=== PATIENT | female | born 1960 | race Caucasian/White ===

== ENCOUNTER 2019-02-04 00:06 | Emergency (ER) | payer OTHER, SELFPAY ==
[2019-02-04 00:08] VITALS: BP 178/93; PULSE 98; RESP 22; TEMP 36.7; O2SAT 98; BMI 32.3
[2019-02-04] MEDS: SODIUM CHLORIDE 0.9% 1,000 ML 1000 ML IV (01:01)
[2019-02-04] MEDS: GLUCAGON,HUMAN RECOMBINANT 1 MG/ML VIAL IV (01:01)
[2019-02-04] MEDS: PANTOPRAZOLE 40 MG VIAL IV (01:04)
[2019-02-04 01:08] LABS: Add Manual Diff / Slide Review NO; Basophils Absolute Auto 100 /uL (0-100); Basophils Percent Auto 0.4 % (0-2); Eosinophils Absolute Auto 100 /uL (0-450); Eosinophils Percent Auto 0.6 % (2-4); Hematocrit 39.3 % (36-46); Hemoglobin 12.9 g/dL (12.0-16.0); Lymphocytes Absolute Auto 2200 /uL (1100-4500); Lymphocytes Percent Auto 15.6 % (25-40); Mean Corpuscular Hemoglobin 27.9 PG (26-34); Mean Corpuscular Volume 84.7 fL (80-100); Monocytes Absolute Auto 700 /uL (0-900); Monocytes Percent Auto 5.1 % (3-14); Neutrophils Absolute Auto 11000 /uL (1500-7000); Neutrophils Percent Auto 78.3 % (50-75); Platelet Count 281 X10^3/uL (150-400); Red Blood Cell Count 4.64 X10^6/uL (4.0-5.2); Red Cell Distribution Width 14.3 % (11.6-14.8)
[2019-02-04 01:23] VITALS: BP 160/98; PULSE 96; RESP 14; O2SAT 96
[2019-02-04 01:26] LABS: Alanine Aminotransferase 29 IU/L (9-52); Albumin 4.8 g/dL (3.5-5.0); Albumin Globulin Ratio 1.5 (1.0-2.8); Alkaline Phosphatase 139 U/L (38-126); Aspartate Aminotransferase 22 IU/L (14-36); BUN Creatinine Ratio 16.7 (6-22); Bilirubin Total 0.3 mg/dL (0.2-1.3); Blood Urea Nitrogen 10 mg/dL (7-17); Calcium 9.3 mg/dL (8.4-10.2); Carbon Dioxide 24 mmol/L (22-32); Chloride 103 mmol/L (98-107); Estimated Glomerular Filt Rate > 60.0 mL/min (>60); Globulin 3.2 g/dL (1.7-4.1); Glucose 126 mg/dL (70-100); HEMOLYSIS < 15 (0-50); Lipase 50 U/L (23-300); Sodium 138 mmol/L (137-145)
--- NOTE | 2019-02-04 01:50 | DI.US.S_ITS ---
PROCEDURE: US ABDOMEN COMPLETE INDICATIONS: ruq pain TECHNIQUE: Real-time scanning was performed of the abdominal and retroperitoneal organs, with image documentation. COMPARISON: None. FINDINGS: Liver: Liver is normal in size and homogeneous in echotexture. Gallbladder: Gallbladder is contracted although grossly unremarkable without definite wall thickening. No sonographic Verma sign is seen. Biliary ducts: Intrahepatic bile ducts are non-dilated. Common bile duct caliber measures 7 mm, which is borderline dilated. There is a punctate echogenic focus seen in within the common bile duct described on the preliminary study interpretation as possible choledocholithiasis or debris. This is technically indeterminate although based on LFTs and level of clinical suspicion, MRCP could be performed for further assessment. Pancreas: Visualized portions of the pancreas are echogenic raising possibility of fatty infiltration. Spleen: Spleen is normal in size and homogeneous in echotexture. Kidneys: Kidneys are normal in size and echotexture. Right kidney measures 11.7 cm long; left kidney measures 10.8 cm long. No hydronephrosis or nephrolithiasis. No solid masses. Aorta: Visualized aorta is normal in caliber at less than 3 cm. Iliacs: Obscured by shadowing bowel gas IVC: Intrahepatic inferior vena cava is patent. Miscellaneous: No free abdominal fluid. IMPRESSION: Coarse echogenic liver suggesting diffuse hepatocellular disease/fatty infiltration. Please correlate with LFTs. Normal appearance of the gallbladder. Punctate echogenic focus seen within the distal common bile duct, technically nonspecific. Please see discussion above Dictated by: William Schmid M.D. on 02/04/2019 at 8:38 Approved by: William Schmid M.D. on 02/04/2019 at 8:43
[2019-02-04] MEDS: MAG HYDROX/ALUMINUM/SIMETH SUS 20 ML, LIDOCAINE VISCOUS 2% 15 ML PO (01:59)
[2019-02-04] MEDS: KETOROLAC 60 MG/2 ML VIAL 30 MG IV (01:59)
[2019-02-04 03:19] VITALS: BP 158/76; PULSE 100; RESP 20; O2SAT 98
[2019-02-04 04:45] VITALS: BP 141/83; PULSE 89; RESP 18; O2SAT 97
--- NOTE | 2019-02-04 06:06 | ED_ITS ---
HPI - Chest Pain General Chief Complaint: Chest Pain Stated Complaint: food stuck in throat since 5pm Time Seen by Provider: 02/04/19 00:14 Source: patient Mode of arrival: ambulatory Limitations: no limitations History of Present Illness HPI narrative: Patient is a 58-year-old female who presents with epigastric pa in. She says she is eating a Trisket cracker at 5:00 p.m. when she feels like it got stuck in her throat. She tried to drink a bunch of water to push it down it did not seem to help. She is not vomiting she feels like something is still really burning in her epigastric area up into her chest. She has no nausea no vomiting she has not tried eating but she is tolerating her own saliva and fluids. She has had this happen before. She does usually she is able to get it down just water. However she does have pretty bad acid reflux. MD complaint: chest pain and other (Epigastric pain) Duration: constant Pain location: substernal Related Data Previous Rx's Medication Instructions Recorded nystatin 1 chaitanya TOPICAL BID 10 Days #0 gm 06/18/16 Allergies Allergy/AdvReac Type Severity Reaction Status Date / Time latex [LATEX] Allergy Intermediate RASH Unverified 02/09/18 13:06 aspirin Allergy Unknown Unverified 02/09/18 13:06 pseudoephedrine Allergy Unknown Unverified 02/09/18 13:06 Review of Systems Review of Systems ROS Unobtainable: All systems reviewed & are unremarkable except as noted in HPI and below Constitutional Denies chills, Denies fever(s), Denies lethargy and Denies weakness Eyes Denies change in vision, Denies eye discharge, Denies irritation and Denies loss of vision Cardiovascular Reports chest pain, Denies dyspnea and Denies dyspnea on exertion Respiratory Denies cough, Denies dyspnea, Denies dyspnea on exertion and Denies wheezing Gastrointestinal Gastrointestinal: Reports abdominal pain (Epigastric pain) Genitourinary Denies hematuria, Denies flank pain, Denies urinary incontinence and Denies urinary urgency Musculoskeletal Denies back pain, Denies muscle weakness, Denies numbness and Denies tingling Integumentary/Breasts Denies pruritus, Denies erythema, Denies rash and Denies wounds Neurologic Denies loss of vision, Denies numbness, Denies tingling and Denies weakness Allergic/Immunologic Denies wheezing [facility] Medical History GERD (gastroesophageal reflux disease) (Acute) Surgical History Status post delivery Social History (Updated 02/04/19 @ 06:03 by Talai Bailey DO) Smoking Status: Never smoker alcohol intake: never substance use type: does not use Social History Smoking Status: Never smoker alcohol intake: never substance use type: does not use Exam Initial Vital Signs Initial Vital Signs: Vital Signs Temperature 98.1 F 02/04/19 00:08 Pulse Rate 98 H 02/04/19 00:08 Respiratory Rate 22 02/04/19 00:08 Blood Pressure 178/93 H 02/04/19 00:08 Pulse Oximetry 98 02/04/19 00:08 GENERAL: Alert appears in mild HEENT: Head atraumatic,EOMI, pupils reactive, face symmetric, moist mucous membranes CARDIOVASCULAR: Regular rate and rhythm without murmurs, rubs or gallops. RESPIRATORY: Breath sounds equal bilaterally, no wheezes rales or rhonchi. Managing own secretions no difficulty speaking ABDOMEN: Soft, tender epigastric area to variant minimal pressure no guarding no rebound very mild right upper quadrant pain, no lower abdominal pain EXTREMITIES: Normal range of motion, no clubbing or edema. Neurovascularly intact NEUROLOGICAL: Alert and oriented x4.Normal gait and speech. Cranial nerves II through XII grossly intact. SKIN: Warm, dry, no laceration, no petechiae, no rashes or lesions. Course Orders Ordered: ED Orders 02/04/19 EKG-12 Lead Routine 02/04/19 00:50 Complete Blood Count AUTO DIFF Stat Comprehensive Metabolic Panel Stat Lipase Stat 02/04/19 01:50 US abdomen complete Stat Discontinued Medications Al Hydrox/Mg Hydrox/Simethicone 20 ml/ Lidocaine HCl 15 ml 0 ml PO NOW ONE Stop: 02/04/19 01:52 Last Admin: 02/04/19 01:59 Dose: 35 ml Glucagon (Glucagen) 1 mg IV NOW ONE Stop: 02/04/19 00:41 Last Admin: 02/04/19 01:01 Dose: 1 mg Sodium Chloride (Normal Saline 0.9%) 1,000 mls @ 1,000 mls/hr IV CONT BETH Last Infusion: 02/04/19 02:23 Dose: 0 mls/hr Admin: 02/04/19 01:01 Dose: 1,000 mls/hr Ketorolac Tromethamine (Toradol) 30 mg IV NOW ONE Stop: 02/04/19 01:51 Last Admin: 02/04/19 01:59 Dose: 30 mg Pantoprazole Sodium (Protonix) 40 mg IV NOW ONE Stop: 02/04/19 00:41 Last Admin: 02/04/19 01:04 Dose: 40 mg Vital Signs - 8 hr 02/04/19 00:08 02/04/19 01:23 02/04/19 03:19 Temperature 98.1 F Pulse Rate 98 H 96 H 100 H Respiratory Rate 22 14 20 Blood Pressure 178/93 H Blood Pressure [Left Arm] 160/98 H 158/76 H Pulse Oximetry 98 96 98 02/04/19 04:45 Temperature Pulse Rate 89 Respiratory Rate 18 Blood Pressure 141/83 H Blood Pressure [Left Arm] Pulse Oximetry 97 MDM - Chest Pain Lab Data Attestation: I reviewed the patient's lab results. Result diagrams: 02/04/19 00:50 02/04/19 00:50 Lab Results 02/04/19 02/04/19 Range/Units 00:50 00:50 WBC 14.0 H (4.5-11.0) X10^3/uL RBC 4.64 (4.0-5.2) X10^6/uL Hgb 12.9 (12.0-16.0) g/dL Hct 39.3 (36-46) % MCV 84.7 (80-100) fL MCH 27.9 (26-34) PG MCHC 33.0 (30-36) % RDW 14.3 (11.6-14.8) % Plt Count 281 (150-400) X10^3/uL Neut % (Auto) 78.3 H (50-75) % Lymph % (Auto) 15.6 L (25-40) % [place] % (Auto) 5.1 (3-14) % Eos % (Auto) 0.6 L (2-4) % Baso % (Auto) 0.4 (0-2) % Neut # (Auto) 16577 H (0358-4494) /uL Lymph # (Auto) 2200 (2932-6087) /uL [place] # (Auto) 700 (0-900) /uL Eos # (Auto) 100 (0-450) /uL Baso # (Auto) 100 (0-100) /uL Sodium 138 (137-145) mmol/L Potassium 4.0 (3.4-5.1) mmol/L Chloride 103 (98-107) mmol/L Carbon Dioxide 24 (22-32) mmol/L BUN 10 (7-17) mg/dL Creatinine 0.60 (0.52-1.04) mg/dL Estimated GFR > 60.0 (>60) mL/min BUN/Creatinine Ratio 16.7 (6-22) Glucose 126 H (70-100) mg/dL Calcium 9.3 (8.4-10.2) mg/dL Total Bilirubin 0.3 (0.2-1.3) mg/dL AST 22 (14-36) IU/L ALT 29 (9-52) IU/L Alkaline Phosphatase 139 H (38-126) U/L Total Protein 8.0 (6.3-8.2) g/dL Albumin 4.8 (3.5-5.0) g/dL Globulin 3.2 (1.7-4.1) g/dL Albumin/Globulin Ratio 1.5 (1.0-2.8) Lipase 50 (23-300) U/L Urine Dip Bedside Urine Glucose Negative Bedside Urine Bilirubin - Negative Bedside Urine Ketone +/- 5 Urine Specific [place] 1.015 Bedside Urine Occult Blood +/- Bedside Urine pH 6.5 Bedside Urine Protein - Negative Bedside Urine Urobilinogen - Negative Bedside Urine Nitrite - Negative Bedside Urine Leukocytes - Negative Esterase Imaging Data US - abdomen: Radiologist's impression: shader and toner report: Diffuse fatty infiltration of the liver. Probable diffuse fatty infiltration of the pancreas. Mild common bile duct dilatation. Possible punctate choledocholithiasis or debris within common bile duct. ECG Data Attestation: I personally reviewed and interpreted this ECG as follows: Prior ECG tracings: available for review Interpretation: Normal sinus rhythm rate [address] changes no T-wave inversions similar to previous EKG MDM Narrative Medical decision making narrative: The patient's pain is much improved after Toradol. At this time I do not think any significant his common duct blockage she has normal bilirubin and normal liver enzymes. She overall is feeling much better. There does not seem to be food lodged in her esophagus she is managing secretions and fluid. Her pain is improved after Toradol and Protonix. I think GI cocktail even helped some as well. She overall is feeling much better. It is ready and able to go home Discharge Plan Departure Patient Disposition: Home Clinical Impression: Abdominal pain Qualifiers: Abdominal location: epigastric Qualified Code(s): R10.13 - Epigastric pain Discharge Date/Time: 02/04/19 04:45 Interventions: ED Discharge Assessment Last Done: 02/04/19 04:45 Instructions: Acute Abdominal Pain, Steakhouse Syndrome Activity Restrictions/Additional Instructions: *You have been diagnosed with epigastric pain *What to do: At this time is more likely that risk it scratched year softly guess. Ultrasound of gallbladder and blood work are reassuring. *Continue to take medications as directed Motrin 600 mg every 6-8 hours if needed for pain *Follow up with your primary care provider in 2-3 days *Return to ER if you should have inability to swallow increasing pain or any n ew, worsening or concerning symptoms Prescriptions: No Action nystatin 15 GM cream 1 chaitanya Topical BID 10 Days Qty: 0 RF: 0 Referrals: Derek Us MD [Primary Care Provider] -
== END 2019-02-04 04:45 | disposition home or self-care (01) ==
PROVIDERS: Emergency Provider Emergency Medicine; Family Provider Family Medicine; PCP Family Medicine
DX: R10.13 Epigastric pain (principal); R10.9 Unspecified abdominal pain
CPT/HCPCS: 36591; 76700; 80053; 81003; 83690; 85025; 93005; 96361; 96374; 96375; 99283; 99285; C9113; J1610; J1885

== ENCOUNTER → 2019-06-28 12:13 | Outpatient (CLI) | payer OTHER, SELFPAY ==
--- NOTE | 2019-06-28 | DI.US.S_ITS ---
PROCEDURE: US PELVIC COMPLETE INDICATIONS: PMB; BREAST CA; BRCA POSITIVE TECHNIQUE: Real-time scanning was performed of the pelvic organs, with image documentation. Additional endovaginal scanning was necessary due to incomplete visualization of the adnexal and endometrial structures by transabdominal scanning. COMPARISON: [facility], US, PELVIC COMPLETE, 03/31/2014, 22:13. FINDINGS: Transabdominal scanning: Limited scanning through the kidneys shows no hydronephrosis. No pathologic free abdominal or pelvic fluid. Endovaginal scanning: Uterus: Uterus is normal in size at 8.4 x 3.4 x 6.3 cm. The endometrium measures 5.5 mm in combined thickness. 1.6 x 1.0 x 1.3 cm intramural fibroid. There is a hypoechoic solid mass seen adjacent and contiguous with the anterior aspect of the endometrial complex measuring 1.2 x 0.8 x 1.5 cm. Ovaries: Simple cyst associated with the left ovary measuring 8mm; otherwise the ovaries are normal bilaterally. IMPRESSION: 1. Endometrial complex mildly thickened in this postmenopausal female with bleeding. Endometrial biopsy is recommended. 2. Hypoechoic solid focus adjacent to the anterior aspect of the endometrium which may represent a small submucosal fibroid. Recommend followup examination in 3 months to assess for interval change. 3. 1.6 cm left fundal intramural fibroid. Dictated by: Willi CHANG Interpreted: Mka Clancy MD on 06/28/2019 at 13:41 Approved by: Mak Clancy M.D. on 06/28/2019 at 16:34
[2019-11-26 14:17] VITALS: BP 134/69; PULSE 111; RESP 16; TEMP 37.1; O2SAT 98
== END ==
PROVIDERS: PCP Student in an Organized Health Care Education/Training Program; Visit Provider Student in an Organized Health Care Education/Training Program
DX: D25.1 Intramural leiomyoma of uterus (principal)
CPT/HCPCS: 76830; 76856

== ENCOUNTER → 2019-07-05 09:19 | Outpatient (CLI) | payer OTHER, SELFPAY ==
--- NOTE | 2019-07-05 09:56 | DI.CT.S_ITS ---
PROCEDURE: CT CHEST ABD PEL W CON INDICATIONS: breast cancer staging TECHNIQUE: After the administration of oral and intravenous contrast, 5 mm thick sections acquired from the lung apices to the symphysis. 5 mm coronal and sagittal reformats were performed, with additional 7 mm coronal MIP reformats through the lungs. For radiation dose reduction, the following was used: automated exposure control, adjustment of mA and/or kV according to patient size. COMPARISON: [facility], CT, ABDOMEN/PELVIS WITH CONTRAST, 03/13/2015, 15:24. [facility], US, US BIOPSY AXILLA, 06/14/2019, 13:37. FINDINGS: Image quality: Excellent. CHEST: Lungs and pleura: No acute airspace opacities. No pleural effusions or pneumothorax. Central and peripheral airways appear patent and normal in caliber. Mediastinum: Heart size is normal. No pericardial effusion. No mediastinal or hilar adenopathy by size criteria. Thoracic aorta and central pulmonary arteries are normal in size. Esophagus is normal in caliber. No hiatal hernia. Chest wall: No supraclavicular adenopathy by size criteria but there are 2 suspicious adjacent lymph nodes at the left axilla the largest of which is measuring up to 1.8 x 3.6 cm, similar in morphology and slightly larger in size than that identified during breast ultrasound and axillary ultrasound imaging, 06/14/19. The smaller of the 2 lesions is located deeper adjacent to the anterior border of the chest wall and measures only 1.4 cm in maximal dimension. Note is made of cutaneous thickening and breast surgical localization clips in area of prior biopsy on the left anteriorly, at the axial level of the nipple. Thyroid gland appears normal where well seen. ABDOMEN: Solid organs: Liver is normal in size and enhancement except for a 1.3 cm ovoid subcapsular nodule within the right hepatic lobe superiorly, best seen centered on series 2 image 50.. Gallbladder appears normal. Biliary system is non dilated. Pancreas enhances normally. Spleen is normal in size and enhancement. No adrenal nodules. Kidneys demonstrate normal size and enhancement, without hydronephrosis. Peritoneum and bowel: Bowel loops demonstrate normal wall thickness and caliber. No free fluid or air. Nodes and vessels: No retroperitoneal or mesenteric adenopathy by size criteria. Aorta and inferior vena cava are normal in size. Miscellaneous: No ventral hernias. PELVIS: Genitourinary: Bladder wall thickness is normal. Miscellaneous: No inguinal hernias or adenopathy. Mass lesion which measures up to Bones: No suspicious bony lesions. No vertebral body compression fractures. IMPRESSION: 1. Post biopsy and post radiation change left breast, centered on the retroareolar left breast parenchyma are several small apparent biopsy localization clips can be seen. 2. At the left axilla there is a lobulated1.8 x 3.6 cm enlarged lymph node, similar in appearance to the lesion in that area seen during breast axillary ultrasound procedure with biopsy 06/14/19. 3. There is a 1.3 cm oval hypodensity within the right hepatic lobe parenchyma which warrants additional followup attention on subsequent imaging. This could represent a single early metastatic lesion within the liver parenchyma. Depending on the clinical status either followup by scanning or by targeted hepatic MR scanning may be warranted. Dictated by: Chavez Alfonso M.D. on 07/05/2019 at 15:13 Approved by: Chavez Alfonso M.D. on 07/05/2019 at 15:22
== END ==
PROVIDERS: PCP Student in an Organized Health Care Education/Training Program
DX: C50.112 Malignant neoplasm of central portion of left female breast (principal); R59.0 Localized enlarged lymph nodes; K76.9 Liver disease, unspecified; Z17.0 Estrogen receptor positive status [ER+]; Z87.891 Personal history of nicotine dependence
CPT/HCPCS: 71260; 74177; Q9967

== ENCOUNTER → 2019-07-14 16:08 | Outpatient (CLI) | payer OTHER, SELFPAY ==
[2019-07-19 21:16] LABS: Estradiol 19 pg/mL
== END ==
PROVIDERS: PCP Student in an Organized Health Care Education/Training Program; Visit Provider Student in an Organized Health Care Education/Training Program
DX: N95.0 Postmenopausal bleeding (principal); Z85.3 Personal history of malignant neoplasm of breast
CPT/HCPCS: 36415; 82672; 83001

== ENCOUNTER → 2019-07-19 09:51 | Outpatient (CLI) | payer OTHER, SELFPAY ==
--- NOTE | 2019-07-19 09:53 | DI.NM.S_ITS ---
PROCEDURE: NM BONE SCAN WHOLE BODY RADIOPHARMACEUTICAL: 22.0 mCi Tc-99m MDP IV. INDICATIONS: breast cancer staging TECHNIQUE: Delayed whole-body scintigrams were obtained approximately 3-4 hours after intravenous injection of radiotracer. Anterior and posterior views were acquired from vertex to feet. Additional left and right oblique views of the thoracic cage were obtained. COMPARISON: [facility], CT, CT CHEST ABD PEL W CON, 07/05/2019, 10:21. FINDINGS: No lesions are identified in skull, sternum, clavicles, scapulae, ribs, bony pelvis, and visualized shafts of the long bones. There is low level increased uptake in cervical, thoracic and lumbar spine with distribution indistinguishable from degenerative disc and facet disease; early metastasis to spine could be obscured by degenerative changes. Uptake in spine is most prominent at T7 level. There are foci of increased periarticular activity involving shoulders, sternoclavicular joints, elbows, wrists, hands, hips, SI joints, knees, ankles and feet, compatible with degenerative/arthritic changes. IMPRESSION: 1. Increased uptake in the area of T7 is probably degenerative in nature. If there is mid thoracic pain or high clinical suspicion, MRI with and without contrast may be obtained for further evaluation. 2. Degenerative and arthritic changes as noted.. Dictated by: Rupal Hill M.D. on 07/19/2019 at 17:16 Approved by: Rupal Hill M.D. on 07/19/2019 at 18:52
== END ==
PROVIDERS: Family Provider Student in an Organized Health Care Education/Training Program; PCP Student in an Organized Health Care Education/Training Program
DX: C50.112 Malignant neoplasm of central portion of left female breast (principal); C77.3 Secondary and unspecified malignant neoplasm of axilla and upper limb lymph nodes; Z17.0 Estrogen receptor positive status [ER+]
CPT/HCPCS: 78306; A9503

== ENCOUNTER → 2019-07-25 09:15 | Outpatient (CLI) | payer OTHER, SELFPAY ==
--- NOTE | 2019-07-25 09:17 | DI.MRI.S_ITS ---
BREAST MRI OF BOTH BREASTS: 07/25/2019 CLINICAL: Invasive lobular carcinoma left breast. PROCEDURE: MR BREAST BI WO/W CON INDICATIONS: breast cancer TECHNIQUE: The patient was placed prone in a dedicated breast imaging coil. Precontrast axial STIR and 3D FLASH without fat saturation sequences were obtained. Both before and after bolus injection of contrast, sequential 1-minute axial 3D FLASH with fat saturation sequences for 3 time points, with subtraction images and maximum intensity projections (MIP's) generated. Delayed sagittal FLASH images with fat saturation were also obtained. Computer-aided detection, including computer algorithm analysis of MRI image data for lesion detection and characterization, pharmacokinetic analysis, with further physician review for interpretation, was performed. COMPARISON: [facility], US, US BREAST LIMITED RIGHT, 05/26/2019, 14:17. [facility], , MG DIAGNOSTIC BILATERAL, 05/26/2019, 13:54. FINDINGS: Image quality: Excellent. There is moderate background parenchymal enhancement. Right breast: Precontrast images demonstrate extensive T1 hyperintensity within the right breast ducts extending into the nipple. There is no corresponding enhancement on the postcontrast images. Multiple subcentimeter T2 hyperintense foci are present within the right breast parenchyma suggesting the presence of small breast cysts. There is a 0.7 x 1.0 x 0.6 cm enhancing mass within the right breast at 4:00 at an anterior depth. This corresponds with the hypoechoic mass visualized on the comparison ultrasound dated 05/26/19. This underwent ultrasound-guided biopsy on 06/14/19 and demonstrated an intraductal papilloma. No other suspicious mass lesions or enhancement within the right breast. Left breast: A focal central mass is present within the left breast which measures approximately 9.1 x 8.2 x 6.0 cm. Multiple spiculations extend from the central portion of this mass to the skin where there is sunita enhancement and thickening. Additionally, there is marked retraction of the left breast including inversion of the nipple. There is no enhancement of the left chest wall. This mass demonstrates a combination of rapid and medium initial enhancement and predominantly persistent type delayed phase kinetics. This lesion was previously biopsied. Miscellaneous: 2 avidly enhancing, enlarged lymph nodes are visualized within the left axilla. The largest measures 1.9 cm in short axis diameter and was previously biopsied. No right axillary adenopathy. No intramammary adenopathy. Limited visualization of the upper abdomen, mediastinum, and chest are unremarkable. The heart is mildly enlarged. IMPRESSION: KNOWN BIOPSY PROVEN MALIGNANCY 1. Enhancing mass within the right breast at 4:00 which corresponds with the previously biopsied papilloma. 2. No other suspicious enhancement within the right breast to suggest contralateral disease. 3. Extensive nonenhancing T1 hyperintensity throughout the right breast ducts suggesting benign, inspissated proteinaceous material. 4. Extensive tumor invasion of the left breast as described above which involves the skin and deformity of the breast. No findings to suggest invasion of the left chest wall. 5. Enlarged, avidly enhancing left axillary adenopathy previously biopsied and demonstrated to represent rhonda metastasis. This exam was interpreted at Station ID: [id number]. Electronically Signed By: Yasmin Valdez M.D. lk/:07/25/2019 17:23:14 ACR BI-RADS Category 6: Known biopsy proven malignancy [id number]
== END ==
PROVIDERS: PCP Student in an Organized Health Care Education/Training Program; Visit Provider Surgery
DX: C50.112 Malignant neoplasm of central portion of left female breast (principal); C77.3 Secondary and unspecified malignant neoplasm of axilla and upper limb lymph nodes; D24.1 Benign neoplasm of right breast
CPT/HCPCS: 77049; A9579

== ENCOUNTER → 2019-08-02 13:19 | Outpatient (CLI) | payer OTHER, SELFPAY ==
--- NOTE | 2019-08-02 13:20 | DI.ECHO.S_ITS ---
[facility]---------+ [facility] +---------+ : : [address] [place] : : : : [id number] : : : : Phone: [phone] Echocardiogram Report + + :Name: LEE SHEN I Study Date: 08/02/2019 Height: 65 in : :[facility] Exam Location: [facility] Weight: 246 lb : : Gender: Female BSA: 2.2 m2 : :: 1960 Age: 59 yrs BP: 128/90 mmHg: :Reason For Study: Breast Cancer/ Pre -Chemo : : Performed By: Aimee Page : :Referring: EVIN JUARES : + + Interpretation Summary Normal sinus rhythm. Normal LV size, wall thickness, wall motion and LV systolic function. EF is 60-65%. No valvular abnormalities. Mild LA enlargement; otherwise normal chamber sizes. No prior study available for comparison. Procedure: A two-dimensional transthoracic echocardiogram with color flow and Doppler was performed. The study quality was technically adequate. There is no prior echocardiogram noted for this patient. The patient was in normal sinus rhythm during the exam. Left Ventricle: The left ventricle is normal in size, wall thickness, and systolic function without any focal wall motion abnormalities. The ejection fraction is estimated to be 60-65%. Right Ventricle: The right ventricle is normal in size and function. Atria: The left atrium is mildly dilated. Right atrial size is normal. There is no Doppler evidence for an interatrial shunt. Mitral Valve: The mitral valve is normal in structure and function. There is mild mitral annular calcification. There is trace mitral regurgitation. Aortic Valve: The aortic valve is trileaflet. The aortic valve opens well. No aortic regurgitation is present. Tricuspid Valve: The tricuspid valve is normal in structure and function. There is a trace or physiologic amount of tricuspid regurgitation. Pulmonary artery pressures cannot be estimated because of the lack of a measurable TR jet velocity. Pulmonic Valve: The pulmonic valve is not well visualized. There is trace pulmonic regurgitation. Great Vessels: The aortic root is normal size. The ascending aorta is normal in size. The pulmonary artery is not well visualized, but is probably normal size. The IVC is of normal diameter and collapses greater than 50% with a sniff. This suggests a low right atrial pressure of 3 mm Hg. Pericardium/ Pleura There is no pericardial effusion. There is no pleural effusion. MMode/2D Measurements & Calculations LVIDd: 4.7 cm LVOT diam: 2.1 cm LVIDs: 3.4 cm Ao root diam: 3.2 cm FS: 28.0 % asc Aorta Diam: 2.8 cm EPSS: 0.40 cm IVSd: 0.80 cm LVPWd: 0.89 cm LV lara. diameter/BSA (cm/m^2): 2.2 LV sys. diameter/BSA (cm/m^2): 1.6 LA A2 area: 22.9 cm2 RA long axis: 4.0 cm LA A4 area: 23.2 cm2 RA area: 13.4 cm2 LA length (vol): 5.6 cm RA vol: 38.2 ml LA vol: 80.5 ml RA : 17.7 ml/m2 LA vol index: 37.3 ml/m2 IVC diam: 2.3 cm RVD1 (basal): 3.7 cm RVD2 (mid): 3.1 cm TAPSE: 2.3 cm Doppler Measurements & Calculations Ao V2 max: 166.8 cm/sec LVOT Max Caesar: 102.0 cm/sec Ao V2 mean: 109.6 cm/sec LV V1 max P.2 mmHg Ao max P.1 mmHg LV V1 VTI: 22.1 cm Ao mean P.5 mmHg CRIS(I,D): 2.3 cm2 Ao V2 VTI: 33.4 cm CRIS(V,D): 2.1 cm2 sev ratio: 0.66 CRIS indexed to BSA (cm^2/m^2): 1.0 MV E max caesar: 81.4 cm/sec PA V2 max: 74.7 cm/sec MV A max caesar: 106.7 cm/sec PA V2 mean: 56.3 cm/sec MV E/A: 0.76 PA mean P.4 mmHg Med Peak E' Caesar: 6.2 cm/sec PA Accel Time: 0.08 sec E/E' med: 13.1 Lat Peak E' Caesar: 8.3 cm/sec E/E' lat: 9.9 E/e' average: 11.5 MV dec time: 0.22 sec MV P1/2t: 64.4 msec MV P1/2t max caesar: 81.6 cm/sec SV(LVOT): 75.7 ml MVA(P1/2t): 3.4 cm2 Electronically signed by: Jacquie Shields M.D. on Reading Physician:08/02/2019 11:08 PM
== END ==
PROVIDERS: Family Provider Student in an Organized Health Care Education/Training Program; PCP Student in an Organized Health Care Education/Training Program
DX: Z01.818 Encounter for other preprocedural examination (principal); C50.112 Malignant neoplasm of central portion of left female breast; C77.3 Secondary and unspecified malignant neoplasm of axilla and upper limb lymph nodes; Z17.0 Estrogen receptor positive status [ER+]
CPT/HCPCS: 93306

== ENCOUNTER → 2019-10-10 12:52 | Outpatient (CLI) | payer OTHER, SELFPAY ==
--- NOTE | 2019-10-10 12:54 | DI.US.S_ITS ---
ULTRASOUND OF LEFT BREAST: 10/10/2019 CLINICAL: F/u known breast ca. Comparison is made to exams dated: 07/25/2019 breast [facility], 06/14/2019 ultrasound biopsy, 06/14/2019 ultrasound biopsy, 06/14/2019 mammogram, 05/26/2019 ultrasound, and 05/26/2019 mammogram - [facility]. Color flow ultrasound of the left breast was performed on the areas of interest. Mendiola scale images of the real-time examination were reviewed. There is a large shadowing mass within the left breast, the size of which cannot be characterized given the extent of disease and the extensive shadowing artifact. It is unclear whether this mass is decreased or increased in size when compared with the prior ultrasound dated 05/26/19 given the limitations of ultrasound. A communications representative axillary lymph node measures 0.9 cm in diameter. A previous, communications representative axillary lymph node measured 1.5 cm in diameter on the study dated 05/26/19. IMPRESSION: KNOWN BIOPSY PROVEN MALIGNANCY Large shadowing mass encompassing the left breast, the size of which cannot be accurately determined by ultrasound. If further characterization is warranted, MRI is recommended. Decrease size of a communications representative left axillary lymph node which may be associated with response to therapy.; However it is unclear whether the same lymph node is being characterized as on the prior study. Again, if clinically indicated, MRI could be used to further characterize findings. This exam was interpreted at Station ID: [id number]. Electronically Signed By: Yasmin Valdez M.D. lk/:10/10/2019 15:16:08 Ultrasound BI-RADS: 6 Known biopsy proven malignancy
== END ==
PROVIDERS: Family Provider Student in an Organized Health Care Education/Training Program; PCP Student in an Organized Health Care Education/Training Program
DX: C50.112 Malignant neoplasm of central portion of left female breast (principal); Z17.0 Estrogen receptor positive status [ER+]
CPT/HCPCS: 76642

== ENCOUNTER → 2019-10-11 12:18 | Outpatient (CLI) | payer OTHER, SELFPAY ==
--- NOTE | 2019-10-11 12:21 | DI.RAD.S_ITS ---
PROCEDURE: FL CATHETER PATENCY COMPARISON: None. INDICATIONS: Check port for possible leak FINDINGS: Port-A-Cath patency is documented, no contrast extravasation over the course of the study. IMPRESSION: Normal Port-A-Cath patency study. Dictated by: Chavez Alfonso M.D. on 10/11/2019 at 14:34 Approved by: Chavez Alfonso M.D. on 10/11/2019 at 14:34
== END ==
PROVIDERS: Family Provider Student in an Organized Health Care Education/Training Program; PCP Student in an Organized Health Care Education/Training Program
DX: Z45.2 Encounter for adjustment and management of vascular access device (principal); C50.919 Malignant neoplasm of unspecified site of unspecified female breast
CPT/HCPCS: 76000

== ENCOUNTER → 2019-12-07 07:35 | Outpatient (CLI) | payer OTHER, SELFPAY ==
--- NOTE | 2019-12-07 08:14 | DI.MRI.S_ITS ---
Patient Name: LEE SHEN date: 1960 Sex: F Attending Physician: Dwain Indications: Date: 12/07/2019 08:14 At the request of: CLEMENTINE NELSON Procedure: MR breast BI wo/w con BREAST MRI OF BOTH BREASTS: 12/07/2019 CLINICAL: Breast cancer after chemotherapy. PROCEDURE: MR BREAST BI WO/W CON INDICATIONS: Breast cancer after chemotherapy. Ultrasound-guided biopsy of the right breast mass at 4:00 position performed on 06/14/19 reportedly identified a high-risk benign intraductal papilloma. Ultrasound-guided biopsy of an enlarged left axillary tail lymph node on 06/14/19 reportedly identified malignancy metastatic axillary lymph nodes. Ultrasound-guided biopsy of a left breast mass (described as central to the nipple anterior depth on comparison ultrasound 05/26/19 and as 7:00 in the retroareolar region on ultrasound-guided biopsy of 06/14/19) reportedly identified malignancy is a lobular carcinoma. TECHNIQUE: The patient was placed prone in a dedicated breast imaging coil. Precontrast axial STIR and 3D FLASH without fat saturation sequences were obtained. Both before and after bolus injection of contrast, sequential 1-minute axial 3D FLASH with fat saturation sequences for 3 time points, with subtraction images and maximum intensity projections (MIP?s) generated. Delayed sagittal FLASH images with fat saturation were also obtained. 20 cc of ProHance intravenous contrast were utilized for this exam. Computer-aided detection, including computer algorithm analysis of MRI image data for lesion detection and characterization, pharmacokinetic analysis, with further physician review for interpretation, was performed. COMPARISON: [facility], MR, LOWER EXTREM. JNT WO CONTRAST, 04/02/2011, 18:32. [facility], MR, LOWER EXTREM. JNT WO CONTRAST, 04/02/2011, 17:59. [facility], US, US BREAST LT LIMITED, 10/10/2019, 14:25. [facility], MG, MG POST CLIP PLACEMENT LEFT, 06/14/2019, 15:07. [facility], MG, MG POST CLIP PLACEMENT RIGHT, 06/14/2019, 15:04. [facility], US, US BIOPSY BREAST 1ST LESION LEFT, 06/14/2019, 13:37. [facility], US, US BIOPSY AXILLA, 06/14/2019, 13:37. [facility], US, US BIOPSY BREAST 1ST LESION RIGHT, 06/14/2019, 13:37. [facility], US, US BREAST Continued Report - Page 2 of 3 Patient Name: LEE SHEN date: 1960 Sex: F Attending Physician: Dwain Indications: Date: 12/07/2019 08:14 At the request of: CLEMENTINE NELSON Procedure: MR breast BI wo/w con LIMITED LEFT, 05/26/2019, 14:17. [facility], US, US BREAST LIMITED RIGHT, 05/26/2019, 14:17. [facility], MG, MG DIAGNOSTIC BILATERAL, 05/26/2019, 13:54. FINDINGS: Image quality: There is susceptibility artifact and failure of fat saturation involving the medial right breast, which obscures underlying anatomy. There is moderate background parenchymal enhancement. Right breast: Precontrast images redemonstrate extensive T1 hyperintensity within the right breast ducts extending to the nipple, without corresponding enhancement on post contrast images, again consistent with inspissated proteinaceous material/debris. Small subcentimeter T2 hyperintense foci within the right breast are stable to comparison exam of 07/25/19, most consistent with intramammary cysts and lymph nodes. Previously identified 1.0 x 0.7 x 0.6 cm enhancing mass within the right breast at 4:00 position anterior depth remain stable in size to comparison breast MRI of 07/25/19; this mass again appears to correspond to the mass visualized on comparison ultrasound of 05/26/19 and underwent ultrasound-guided biopsy on 06/14/19 (demonstrating an intraductal papilloma). Left breast: Previously identified irregular spiculated central mass present within the left breast again measures approximately 9.1 x 8.2 x 6.0 cm with multiple spiculations extending to the skin. There is again marked retraction of the left breast with diffuse skin irregularity including left nipple inversion. Overall enhancement of this mass within the left breast is similar in extent to comparison MRI of 07/25/19, but the enhancement pattern appears more heterogeneous and decreased in confluence than on comparison MRI of 07/25/19. The mass demonstrates rapid initial enhancement and predominantly persistent contrast enhancement kinetics, similar to comparison exam of 07/25/19. Miscellaneous: Right axillary lymph nodes are stable to comparison MRI of 07/25/19. Previously identified identified enlarged level I left axillary lymph nodes are decreased in size from prior comparison exam. The more anteroinferior level I left axillary lymph node currently measures 2.5 x 1.2 x 2.0 cm, previously 3.9 x 1.9 x 4.0 cm on 07/25/19. The more posterosuperior level I left axillary lymph node currently measures 2.0 x 1.0 cm transaxial, previously 2.5 x 1.3 cm transaxial on 07/25/19. An enhancing left level III lymph node (Margarito's node) currently measures 0.9 x 0.7 cm transaxial, previously 1.1 x 1.0 cm transaxial on 07/25/19. No internal mammary lymphadenopathy noted bilaterally. Continued Report - Page 3 of 3 Patient Name: LEE SHEN date: 1960 Sex: F Attending Physician: Dwain Indications: Date: 12/07/2019 08:14 At the request of: CLEMENTINE NELSON Procedure: MR breast BI wo/w con IMPRESSION: KNOWN BIOPSY PROVEN MALIGNANCY Imaging artifact limits evaluation of the medial right breast. Within this context: 1. Similar size and extent of the large left breast biopsy-proven malignancy involving the skin and nipple. However, the pattern of contrast enhancement appears more heterogeneous and decreased in confluence than on comparison breast MRI of 07/25/19. This is indeterminate but could represent a partial response to treatment in the appropriate clinical setting. Clinical correlation recommended. 2. Interval decrease in size of level I and level III left axillary lymph nodes (with the level I lymphadenopathy previously biopsied and demonstrated to represent rhonda metastasis). 3. Stable size of the enhancing mass within the right breast at 4:00 position, reportedly corresponding to a previously biopsied papilloma. Continued attention on followup exams is suggested. BIRADS: 6. Biopsy-proven malignancy. COMMENT: The imaging literature indicates that a negative contrast breast MRI examination has a high sensitivity and a moderate specificity for detecting and excluding invasive carcinomas to a detection threshold of 3-5 mm; nonetheless, appropriate clinical and mammographic follow- up are recommended. MRI is not sensitive for detecting DCIS (ductal carcinoma in situ) and may not detect large invasive neoplasms that show only minimal enhancement such as mucinous carcinoma. If there are suspicious calcifications or clinically worrisome palpable masses, then biopsy should still be considered. Invasive neoplasms can be hidden by co-existent and benign enhancement caused by mastitis, hormone therapy effects, radiation therapy, , and recent biopsy or surgery. False positive examinations can occur in a number of circumstances, including breasts that have recently been subject to invasive procedures and those that contain atypical ductal hyperplasia, hormonally stimulated glandular tissue, fat necrosis, or radial scars. This exam was interpreted at Station ID: [id number]. Electronically Signed By: Kan Bergman M.D. ecl/:12/07/2019 11:58:08 copy to: MYRA Glover LEAH, ph: [phone] ACR BI-RADS Category 6: Known biopsy proven malignancy [id number]
== END ==
PROVIDERS: Family Provider Student in an Organized Health Care Education/Training Program; PCP Student in an Organized Health Care Education/Training Program; Referring Provider Internal Medicine Hematology & Oncology; Visit Provider Internal Medicine Hematology & Oncology
DX: C50.012 Malignant neoplasm of nipple and areola, left female breast (principal); C77.3 Secondary and unspecified malignant neoplasm of axilla and upper limb lymph nodes; D24.1 Benign neoplasm of right breast; Z17.0 Estrogen receptor positive status [ER+]
CPT/HCPCS: 77049; A9579

== ENCOUNTER → 2020-01-31 10:14 | Outpatient (CLI) | payer OTHER, SELFPAY ==
--- NOTE | 2020-01-31 11:25 | DI.CT.S_ITS ---
PROCEDURE: CT CHEST ABD PEL W CON INDICATIONS: breast cancer staging TECHNIQUE: After the administration of oral and intravenous contrast, 5 mm thick sections acquired from the lung apices to the symphysis. 5 mm coronal and sagittal reformats were performed, with additional 7 mm coronal MIP reformats through the lungs. For radiation dose reduction, the following was used: automated exposure control, adjustment of mA and/or kV according to patient size. COMPARISON: [facility], CT, ABDOMEN/PELVIS WITH CONTRAST, 03/13/2015, 15:24. [facility], NM, NM BONE SCAN WHOLE BODY, 07/19/2019, 13:21. [facility], CT, CT CHEST ABD PEL W CON, 07/05/2019, 10:21. FINDINGS: Image quality: Excellent. CHEST: Lungs and pleura: No acute airspace opacities. 2 mm calcified granuloma lateral periphery of the left lower lobe. 4 mm calcified granuloma noted in the posterior aspect of the right upper lobe. No pleural effusions or pneumothorax. Central and peripheral airways appear patent and normal in caliber. Mediastinum: Heart size is normal. No pericardial effusion. No mediastinal or hilar adenopathy by size criteria. Thoracic aorta and central pulmonary arteries are normal in size. Esophagus is normal in caliber. No hiatal hernia. Chest wall: Right chest wall Port-A-Cath is noted. No axillary or supraclavicular adenopathy by size criteria. There is a small 1.9 x 1.2 cm low-density lesion with irregular margins in the left axilla at the site of previously identified rhonda mass which likely represents postsurgical seroma/scarring. Thyroid gland is normal where visualized. Postsurgical changes compatible with bilateral mastectomies noted. Skin thickening and subcutaneous stranding noted at the mastectomy sites bilaterally likely represents post radiation change. There is a 2.0 x 6.0 cm fluid collection in the right mastectomy site likely represents postsurgical hematoma/seroma. ABDOMEN: Solid organs: Liver is normal in size. Small, approximately 11 cm in maximum diameter subcapsular, hypoattenuating nodule involving the posterior-superior subsegment of the right lobe liver is not significantly changed compared to 07/05/2019. Diffuse fatty infiltration of the liver. Gallbladder is normal. Biliary system is non dilated. Pancreas enhances normally. Spleen is normal in size and enhancement. Mild bilateral adrenal nodular thickening is stable compared to prior exams.. Kidneys demonstrate normal size and enhancement, without hydronephrosis. Peritoneum and bowel: Bowel loops demonstrate normal wall thickness and caliber. No free air. Small amount of scattered fluid is noted in the pelvis. Peritoneal membrane thickening involving the lower and central pelvis has progressed compared to 07/05/19. Patchy, ill-defined soft tissue densities in the omentum are stable compared to 07/05/2019. Nodes and vessels: No retroperitoneal or mesenteric adenopathy by size criteria. Aorta and inferior vena cava are normal in size. Miscellaneous: No ventral hernias. PELVIS: Genitourinary: Bladder wall thickness is normal. Miscellaneous: No inguinal hernias or adenopathy. Bones: No suspicious bony lesions. No vertebral body compression fractures. Spine degenerative disc disease and facet arthropathy. IMPRESSION: 1. Status post bilateral mastectomies and left axillary rhonda mass resection. 2. No lymphadenopathy based on size criteria. 3. Peritoneal membrane thickening involving the central pelvis has progressed in the interval since prior exam obtained 07/05/2019 compatible with progression of peritoneal carcinomatosis. 3. Subcapsular, hypoattenuating lesion involving the posterior-superior subsegment of the right lobe of liver is stable compared to 07/05/2019. Dictated by: Olivia Biggs MD, PhD on 01/31/2020 at 11:37 Approved by: Olivia Biggs MD, PhD on 01/31/2020 at 11:57
== END ==
PROVIDERS: Family Provider Student in an Organized Health Care Education/Training Program; PCP Student in an Organized Health Care Education/Training Program; Referring Provider Internal Medicine Hematology & Oncology; Visit Provider Internal Medicine Hematology & Oncology
DX: C50.012 Malignant neoplasm of nipple and areola, left female breast (principal); C77.3 Secondary and unspecified malignant neoplasm of axilla and upper limb lymph nodes; K76.9 Liver disease, unspecified; Z17.0 Estrogen receptor positive status [ER+]; Z90.13 Acquired absence of bilateral breasts and nipples
CPT/HCPCS: 71260; 74177; Q9967

== ENCOUNTER → 2020-03-15 08:52 | Outpatient (CLI) | payer OTHER, SELFPAY ==
--- NOTE | 2020-03-15 09:56 | DI.CT.S_ITS ---
PROCEDURE: CT ABDOMEN PELVIS W CON INDICATIONS: abdomen bloating, breast cancer TECHNIQUE: After the administration of oral and intravenous contrast, 5 mm thick sections acquired from the diaphragms to the symphysis. 5 mm thick coronal and sagittal reformats were performed. For radiation dose reduction, the following was used: automated exposure control, adjustment of mA and/or kV according to patient size. COMPARISON: [facility], CT, CT CHEST ABD PEL W CON, 01/31/2020, 11:12. [facility], CT, ABDOMEN/PELVIS WITH CONTRAST, 03/13/2015, 15:24. FINDINGS: Image quality: Excellent. ABDOMEN: Lung bases: Lung bases are clear. Heart size is normal. Solid organs: Liver is normal in size and enhancement. Gallbladder appears normal. Biliary system is non-dilated. Pancreas enhances normally. Spleen is normal in size and enhancement. No adrenal nodules. Kidneys are normal in size and enhancement, without hydronephrosis but the right renal pelvis and right ureter is slightly more prominent than that on the left. Peritoneum and bowel: Stomach, small bowel, and colon loops are normal in caliber and wall thickness. No free fluid or air. Note is again made of slight thickening and increased radiodensity within the omentum, most convincingly demonstrated in the area at the midline just above the level of the umbilicus. Additionally, there is slight stranding along the omental margin to the left of midline more inferiorly. Nodes and vessels: No retroperitoneal or mesenteric adenopathy. Aorta and inferior vena cava are normal in caliber. Miscellaneous: No ventral hernias. PELVIS: Genitourinary: Bladder wall thickness is normal. Miscellaneous: No inguinal hernias or adenopathy. The pattern of peritoneal enhancement and thickening has been previous identified deep within the pelvis, right greater than left, and this pattern remains. No definite interval worsening is seen. A slight amount of free fluid is seen deep within the cul-de-sac. Bones: No suspicious bony lesions. No vertebral body compression fractures. IMPRESSION: 1. No appreciable change in the pattern of omental carcinomatosis and also peritoneal carcinomatosis deep within the pelvis greater on the right than the left. 2. Slight asymmetric prominence of the right renal collecting system and ureter when compared to the appearance on the left. This asymmetry could indicate potential for impingement on the normal outflow of urine through the distal right ureter given the asymmetric degree of peritoneal enhancement and thickening at the right pelvis. Continued attention to the caliber of the collecting system and ureter on the right is recommended. No asymmetric renal cortical enhancement has developed at this time. Dictated by: Chavez Alfonso M.D. on 03/15/2020 at 13:37 Approved by: Chavez Alfonso M.D. on 03/15/2020 at 14:07
== END ==
PROVIDERS: Family Provider Student in an Organized Health Care Education/Training Program; PCP Student in an Organized Health Care Education/Training Program; Referring Provider Internal Medicine Hematology & Oncology; Visit Provider Internal Medicine Hematology & Oncology
DX: C50.112 Malignant neoplasm of central portion of left female breast (principal); C78.6 Secondary malignant neoplasm of retroperitoneum and peritoneum; R14.0 Abdominal distension (gaseous)
CPT/HCPCS: 74177; Q9967

== ENCOUNTER → 2020-04-13 09:46 | Outpatient (CLI) | payer OTHER, SELFPAY ==
[2020-04-14 02:05] LABS: COVID19 Sendout Not Detected (Not Detect)
== END ==
PROVIDERS: Family Provider Student in an Organized Health Care Education/Training Program; PCP Student in an Organized Health Care Education/Training Program; Visit Provider Physician Assistant
DX: Z01.818 Encounter for other preprocedural examination (principal)
CPT/HCPCS: 87635

== ENCOUNTER 2020-04-16 09:04 | Day surgery (SDC) | payer OTHER, SELFPAY ==
[2020-04-10 08:15] VITALS: BMI 40.7
[2020-04-16] VITALS (7 sets, daily range): BP systolic 138–156; BP diastolic 71–91; PULSE 69–93; RESP 10–20; TEMP 36.1–36.3; O2SAT 93–98; BMI 39.8
--- NOTE | 2020-04-16 | PATH_ITS ---
[facility] Accession Number: [id number] . 01 Material submitted: . peritoneum - PERITONEAL BIOPSIES . 02 Diagnosis: Peritoneum, Biopsies: Metastatic breast carcinoma, confirmed by immunohistochemistry. Please see comment. [facility] 04/19/2020 1401 Local . 02 Comment: The morphologic appearance is compatible with metastasis from the patient's previously diagnosed lobular breast carcinoma. As part of routine air quality technician, Dr. Garcia also reviewed this case and agrees with the diagnosis. . 02 Electronically signed: . Kady Portillo MD, Pathologist NPI- [id number] . 01 Gross description: . Specimen A is received in formalin, labeled with patient identification and peritoneal biopsies. It consists of three white to yellow-angelo and irregular shaped tissue fragments measuring from 1.3 x 0.6 x 0.3 cm to 1.4 x 1.1 x 0.2 cm. The entire specimen is submitted in one cassette. Summary of sections: A1 -three pieces. ([id number]) /[facility] 04/17/2020 1434 Local . 02 Microscopic: . Immunohistochemical stains were performed to characterize cells of interest. All control stains showed appropriate reactivity. . RESULTS: GATA3: Uniformly positive. Estrogen receptor: Positive (moderate, 90% of cells). GCDFP15: Variably positive. Mammaglobin: Occasional cells positive. . INTERPRETATION: The immunophenotype is compatible with metastatic breast carcinoma. . * This test was developed and its performance characteristics determined by [employer]. It has not been cleared or approved by the U.S. Food and Drug Administration. The FDA has determined that such clearance or approval is not necessary. This test is used for clinical purposes. It should not be regarded as investigational or for research. . 02 Pathologist provided ICD-10: C78.6 . 02 CPT . 879992, L34005, C28712 Performed at: 01 [facility] [address] [place] [address], [place], [place] [id number] MD Nirmal Pollock MD Phone: [phone] Performed at: 02 [facility] [address] [place], [place] [id number] MD Kady Portillo MD Phone: [phone]
[2020-04-16] MEDS: LACTATED RINGERS 1,000 ML 42 ML IV (09:15)
--- NOTE | 2020-04-16 09:27 | PM.HP.1 ---
History of Present Illness History of Present Illness Date Patient Seen: 04/16/20 Time Patient Seen: 09:29 Chief complaint: [id number] Narrative: 60-year-old woman with history of left breast cancer who has undergone a mastectomy with axillary lymph node dissection as well as chemo and radiation. She has developed recent right-sided abdominal pain and has imaging which demonstrates some peritoneal thickening question is whether this is peritoneal metastasis versus a benign process. Please see the H&P from March 2020 for further detail. She has had no interval changes in her health. Patient History Medical History Former smoker (Acute) GERD (gastroesophageal reflux disease) (Acute) Surgical History Hx of bilateral mastectomy (Acute 01/05/20) Hx of left breast biopsy (Acute 06/14/19) Status post delivery Family & Social History Tobacco & Substance use: Smoking Status Former smoker alcohol intake never Meds Home Medications and Allergies Home Medications Medication Instructions Recorded Confirmed Type [id number]-met-choln 1 ml PO DAILY 06/28/19 04/16/20 History [Geritol Tonic with Ferrex 18] diphenhydramine HCl 25 mg capsule 25 mg PO Q6H PRN 07/14/19 04/16/20 History hydrocodone-acetaminophen 1 tab PO Q4-6H PRN 08/16/19 04/16/20 History ondansetron 4 mg PO Q8H PRN #20 tab 09/13/19 04/10/20 Rx gabapentin 100 mg PO BID #60 cap 02/26/20 04/16/20 Rx Allergies Allergy/AdvReac Type Severity Reaction Status Date / Time aspirin Allergy Intermediate Verified 03/20/20 09:11 latex [LATEX] Allergy Intermediate RASH Verified 03/20/20 09:11 iodine Allergy Mild Rash Verified 04/16/20 09:20 acetaminophen [From Percocet] AdvReac Mild Hallucinations, Verified 04/16/20 09:20 Onry oxycodone [From Percocet] AdvReac Mild Hallucinations, Verified 04/16/20 09:20 Onry pseudoephedrine AdvReac Mild Nervousness, Unverified 04/16/20 09:20 jittery Review of Systems Review of Systems Narrative: A 10 point review of systems is negative except as noted in the HPI Exam Vital Signs (past 8 hours): General-no acute distress, well nourished HEENT-moist mucous membranes, no scleral icterus Neck-supple, no lymphadenopathy Chest- non labored respirations, clear to auscultation bilaterally Cardiac-regular rate no peripheral edema Abdomen-soft, nontender, non distended Extremities-warm, well perfused Neurological-alert and oriented, no focal deficits Assessment & Plan Assessment & Plan narrative: 60-year-old female with history of left breast cancer pT4a pN1a, status post neoadjuvant therapy, bilateral mastectomy with left axillary lymph node dissection now on adjuvant radiation. She has recently developed right abdominal pain and has imaging which demonstrates peritoneal thickening concerning for possible peritoneal carcinomatosis although this would be unusual secondary to breast cancer. She is here for diagnostic laparoscopy with biopsy to evaluate the peritoneal radiographic findings and determine whether this is malignancy versus a benign process. COVID-19 COVID-19 status: Negative Result date/Date tested (Pos, Neg/Pending): 04/13/20
[2020-04-16] MEDS: CEFAZOLIN 2 GM/100 ML FROZ.PIGGY IV (09:50)
--- NOTE | 2020-04-16 10:12 | SUR.OPER ---
pt presents with esparza over her left breast, axilla and chest that she said are from her radiation treatment. She also has a red blister like welt on her left eyelid
--- NOTE | 2020-04-16 10:14 | SUR.OPER ---
Supine on padded OR bed, head on pillow, arms secured on padded arm boards at <90 degrees abduction, legs uncrossed, safety belt at thigh, tape over blanket over lower legs.
[2020-04-16] MEDS: BUPIVACAINE 0.25% (PF) VIAL 30 ML INJ (10:20)
--- NOTE | 2020-04-16 10:58 | P.OP_ITS ---
Operative Date/Time/Diagnoses Date of procedure: 04/16/20 Time of procedure: 10:58 Pre-op diagnosis: Carcinomatosis Post-op diagnosis: same Procedure & Clinicians Procedure: Diagnostic laparoscopy Same procedure as scheduled: Yes Indications: 60-year-old woman history of left breast cancer who is undergone surgery chemo and radiation therapy in developed right-sided abdominal pain with CT demonstrating peritoneal thickening. Surgeon: George Todd Anesthesia Type: General Operative Notes Findings: Likely diffuse carcinomatosis Specimen(s): other (Peritoneal biopsies) Estimated Blood Loss (mL): 10 Procedure in detail: Patient was brought to the operating room and placed on the table. She received 2 g of Ancef prior to skin incision. She received bilateral lower extremity compression devices. General anesthesia was induced and she was intubated with an endotracheal tube. Time-out was performed. She was prepped and draped in sterile fashion. Made a infraumbilical incision the umbilical stalk was elevated and the which fascia was sharply incised. The abdomen was entered atraumatically with a 12 mm balloon trocar. Pneumoperitoneum was established. Inspection demonstrated no evidence of injury upon entry. There was approximately 100 mL of serosanguineous fluid within the abdomen consistent with ascites which was suctioned out.. Inspection of the abdomen demonstrated that there were diffuse white nodular plaques throughout the abdomen especially on the abdominal wall, the right pelvic sidewall and circumferential around the cecum. There were no obvious masses. I performed a biopsy of the peritoneum in several places. The peritoneum with the plaques were grasped and sharply incised with the scissors. Hemostasis was observed. The abdomen was desufflated. The umbilicus was closed with Vicryl suture under direct visualization in [id number] fashion. The skin was closed with Monoc ryl for O followed by the application of Dermabond. Patient tolerated procedure well. Complications: none Post-operative Condition: stable Disposition: same day surgery
[2020-04-16] MEDS: HYDROCODONE/ACET 5/325 TABLET 1 TAB PO (11:44)
== END 2020-04-16 12:25 | disposition home or self-care (01) ==
PROVIDERS: PCP Student in an Organized Health Care Education/Training Program; Referring Provider Surgery; Visit Provider Surgery
PROC: (CPT 49320; principal; 2020-04-16 10:15)
DX: C78.6 Secondary malignant neoplasm of retroperitoneum and peritoneum (principal); K21.9 Gastro-esophageal reflux disease without esophagitis; R93.5 Abnormal findings on diagnostic imaging of other abdominal regions, including retroperitoneum; Z85.3 Personal history of malignant neoplasm of breast; Z87.891 Personal history of nicotine dependence
CPT/HCPCS: 49321; J0330; J0690; J1100; J1170; J2405; J2704; J3010

== ENCOUNTER → 2020-05-09 10:35 | Outpatient (CLI) | payer OTHER, SELFPAY ==
--- NOTE | 2020-05-09 10:36 | DI.NM.S_ITS ---
PROCEDURE: [place] BONE SCAN WHOLE BODY RADIOPHARMACEUTICAL: 20.5 mCi Tc-99m MDP IV. INDICATIONS: metastatic breast cancer TECHNIQUE: Delayed whole-body scintigrams were obtained approximately 3-4 hours after intravenous injection of radiotracer. Anterior and posterior views were acquired from vertex to feet. Additional left and right oblique views of the chest/abdomen were obtained. COMPARISON: [facility], CT, CT CHEST ABD PEL W CON, 05/09/2020, 11:55. [facility], [place], [place] BONE SCAN WHOLE BODY, 07/19/2019, 13:21. FINDINGS: As was previously the case there is a mild degree of isotope uptake centered on the T8-T9 area of the mid thoracic spine. With reference to the sagittal spine imaging from CT scanning earlier today that represents the area of maximal degenerative disc disease, and there is no osteolytic or blastic lesion in that area of any type. Therefore this is considered degenerative rather than metastatic in origin. Similarly, elsewhere over the axial and appendicular skeleton no evidence of osseous metastatic disease is found and degenerative changes present appear essentially stable over time. IMPRESSION: Degenerative change without evidence of metastatic venous. As noted, in the T8-T9 area exactly correlates with the area of maximal degenerative disc disease on CT scanning from earlier today. Dictated by: Chavez Alfonso M.D. on 05/09/2020 at 16:04 Approved by: Chavez Alfonso M.D. on 05/09/2020 at 16:19
--- NOTE | 2020-05-09 10:36 | DI.CT.S_ITS ---
PROCEDURE: CT CHEST ABD PEL W CON INDICATIONS: Restaging metastatic breast cancer TECHNIQUE: After the administration of oral and intravenous contrast, 5 mm thick sections acquired from the lung apices to the symphysis. 5 mm coronal and sagittal reformats were performed, with additional 7 mm coronal MIP reformats through the lungs. For radiation dose reduction, the following was used: automated exposure control, adjustment of mA and/or kV according to patient size. COMPARISON: [facility], CT, CT CHEST ABD PEL W CON, 01/31/2020, 11:12. [facility], CT, CT CHEST ABD PEL W CON, 07/05/2019, 10:21. FINDINGS: Image quality: Excellent. CHEST: Lungs and pleura: No acute airspace opacities. No pleural effusions or pneumothorax. Central and peripheral airways appear patent and normal in caliber. Mediastinum: Heart size is normal. No pericardial effusion. No mediastinal or hilar adenopathy by size criteria. Thoracic aorta and central pulmonary arteries are normal in size. Esophagus is normal in caliber. No hiatal hernia. Chest wall: No axillary or supraclavicular adenopathy by size criteria. Thyroid gland is not well-seen. The Port-A-Cath from right sided approach extends into the distal SVC.. ABDOMEN: Solid organs: Liver is normal in size and enhancement. A peripherally enhancing centrally relatively radiolucent right subcapsular hepatic hypodensity is again seen, measuring approximately 1.4 cm in maximal dimension, centered on series 2 image 52, in the setting of fatty infiltration throughout the liver. This small structure has been previously identified, and has not enlarged over the prior several CT scans. Etiology and clinical significance is indeterminate. Gallbladder appears normal. Biliary system is non dilated. Pancreas enhances normally. Spleen is normal in size and enhancement. No adrenal nodules. Kidneys demonstrate normal size and enhancement, without hydronephrosis. Peritoneum and bowel: Bowel loops demonstrate normal wall thickness and caliber. No free fluid or air. There is a slight amount of increased radiodensity involving the omentum, consistent with peritoneal carcinomatosis, and this is more evident inferiorly within the pelvis. Peritoneal carcinomatosis has mildly but definitely increased, as indicated by increased radiodensity in the right lower quadrant peritoneum and also increased thickness of the combined parietal peritoneal membranes within the pelvis when compared to the prior study from January of this year. Nodes and vessels: No retroperitoneal or mesenteric adenopathy by size criteria. Aorta and inferior vena cava are normal in size. Miscellaneous: No ventral hernias. PELVIS: Genitourinary: Bladder wall thickness is normal. Miscellaneous: No inguinal hernias or adenopathy. Bones: No suspicious bony lesions. No vertebral body compression fractures. IMPRESSION: 1. Small subcapsular right hepatic lobe hypodensity with increased enhancement along its periphery may represent a hepatic metastatic lesion but has not enlarged in size over several prior recent CT scans. There is diffuse fatty infiltration throughout the liver. 2. Within the peritoneal space there is relatively subtle but definite evidence of slowly progressive peritoneal carcinomatosis. This is best seen within the right lower hemipelvis when compared to the prior CT scanning but also can be seen as a thickening of the 2 combined adjacent parietal peritoneal surfaces along leaves of the small bowel mesentery within the lower midline pelvis. 3. No osseous metastatic disease found, no adenopathy identified. Dictated by: Chavez Alfonso M.D. on 05/09/2020 at 15:06 Approved by: Chavez Alfonso M.D. on 05/09/2020 at 15:19
== END ==
PROVIDERS: PCP Student in an Organized Health Care Education/Training Program; Referring Provider Student in an Organized Health Care Education/Training Program; Visit Provider Internal Medicine Hematology & Oncology
DX: C50.112 Malignant neoplasm of central portion of left female breast; C78.6 Secondary malignant neoplasm of retroperitoneum and peritoneum; C77.3 Secondary and unspecified malignant neoplasm of axilla and upper limb lymph nodes; K76.0 Fatty (change of) liver, not elsewhere classified; Z17.0 Estrogen receptor positive status [ER+]; Z95.828 Presence of other vascular implants and grafts
CPT/HCPCS: 71260; 74177; 78306; A9503; Q9967

== ENCOUNTER → 2020-10-29 07:48 | Outpatient (CLI) | payer OTHER, SELFPAY ==
--- NOTE | 2020-10-29 10:00 | DI.CT.S_ITS ---
PROCEDURE: CT CHEST ABD PEL W CON INDICATIONS: metastatic breast cancer TECHNIQUE: After the administration of oral and intravenous contrast, 5 mm thick sections acquired from the lung apices to the symphysis. 5 mm coronal and sagittal reformats were performed, with additional 7 mm coronal MIP reformats through the lungs. For radiation dose reduction, the following was used: automated exposure control, adjustment of mA and/or kV according to patient size. COMPARISON: [place], [place] BONE SCAN WHOLE BODY, 07/19/2019, 13:21. [place], [place] BONE SCAN WHOLE BODY, 05/09/2020, 13:09. [facility], CT, CT CHEST ABD PEL W CON, 07/05/2019, 10:21. [facility], CT, CT CHEST ABD PEL W CON, 01/31/2020, 11:12. [facility], CT, CT ABDOMEN PELVIS W CON, 03/15/2020, 9:46. [facility], CT, CT CHEST ABD PEL W CON, 05/09/2020, 11:55. FINDINGS: Image quality: Excellent. CHEST: Lungs and pleura: No acute airspace opacities. Subpleural septal thickening in the left upper lobe anteriorly likely secondary to post radiation change. A small 2 mm calcified nodule in the left upper lobe (series 3, image 74), is compatible with an old granuloma. No pleural effusions or pneumothorax. Central and peripheral airways appear patent and normal in caliber. Mediastinum: Heart size is normal. No pericardial effusion. No mediastinal or hilar adenopathy by size criteria. Thoracic aorta and central pulmonary arteries are normal in size. Esophagus is normal in caliber. Small hiatal hernia. Chest wall: Bilateral mastectomies. Soft tissue thickening in anterior chest wall is noted, unchanged. There is a 1.1 cm left axillary lymph node, stable. Thyroid gland is normal . There is a Port-A-Cath in the right anterior chest. ABDOMEN: Solid organs: There is severe hepatic steatosis. Liver is normal in size and enhancement. Gallbladder is normal . Biliary system is non dilated. Pancreas enhances normally. Spleen is normal in size and enhancement. No adrenal nodules. Kidneys demonstrate normal size and enhancement, without hydronephrosis. Peritoneum and bowel: Subtle omental stranding appear less conspicuous. Peritoneal thickening in pelvis appears unchanged Bowel loops demonstrate normal wall thickness and caliber. No free fluid or air. Nodes and vessels: No retroperitoneal or mesenteric adenopathy by size criteria. Aorta and inferior vena cava are normal in size. Miscellaneous: No ventral hernias. PELVIS: Genitourinary: Bladder wall thickness is normal. Miscellaneous: No inguinal hernias or adenopathy. Bones: There is a sclerotic lesion in right superior aspect of L1 vertebral body, which appears unchanged. There is no abnormality on the correlating bone scan. No vertebral body compression fractures. IMPRESSION: 1. Bilateral mastectomies. There is soft tissue thickening in the left anterior chest wall, unchanged. 2. Stable 1.1 cm left axillary lymph node. 3. Subtle omental stranding appears less conspicuous. Omental thickening in pelvis appears unchanged. No ascites 4. Indeterminate sclerotic lesion in the superior aspect of L1 vertebral body is stable. There is no abnormality on the correlating bone scan. 5. Hepatic steatosis. Dictated by: Rupal Hill M.D. on 10/29/2020 at 17:24 Approved by: Rupal Hill M.D. on 10/30/2020 at 9:44
== END ==
PROVIDERS: PCP Student in an Organized Health Care Education/Training Program; Referring Provider Internal Medicine Hematology & Oncology; Visit Provider Internal Medicine Hematology & Oncology
DX: C50.112 Malignant neoplasm of central portion of left female breast (principal); C77.3 Secondary and unspecified malignant neoplasm of axilla and upper limb lymph nodes; C78.6 Secondary malignant neoplasm of retroperitoneum and peritoneum; K76.0 Fatty (change of) liver, not elsewhere classified; M89.9 Disorder of bone, unspecified; K44.9 Diaphragmatic hernia without obstruction or gangrene; Z17.0 Estrogen receptor positive status [ER+]; Z90.13 Acquired absence of bilateral breasts and nipples; Z95.828 Presence of other vascular implants and grafts
CPT/HCPCS: 71260; 74177; Q9967

== ENCOUNTER 2020-11-21 16:54 | Emergency (ER) | payer OTHER, SELFPAY ==
[2020-11-21 17:04] VITALS: BP 170/108; PULSE 92; RESP 20; TEMP 36.8; O2SAT 96; BMI 40.3
--- NOTE | 2020-11-21 17:25 | DI.US.S_ITS ---
PROCEDURE: US PERIPH VENOUS LOW EXTREM LT INDICATIONS: eval for DVT TECHNIQUE: Real-time imaging, as well as color and pulse Doppler interrogation, were performed of the lower extremity deep veins from the inguinal ligament to the popliteal fossa. COMPARISON: None. FINDINGS: The common femoral, femoral and popliteal veins are normally compressible, and free of intraluminal thrombus. Color and pulse Doppler demonstrate normal phasic intraluminal flow. There is normal augmentation response to distal compression maneuver. IMPRESSION: No sonographic evidence of deep venous thrombosis in the left lower extremity. Dictated by: Kyle Farrar M.D. on 11/21/2020 at 18:18 Approved by: Kyle Farrar M.D. on 11/21/2020 at 18:19
[2020-11-21 18:46] VITALS: BP 148/95; PULSE 96; RESP 18; O2SAT 96
--- NOTE | 2020-11-21 19:57 | ED_ITS ---
HPI - Extremity Injury (Lower) General Chief Complaint: Extremity Injury, Lower Stated Complaint: thinks clot in left leg Time Seen by Provider: 11/21/20 17:25 Source: patient Mode of arrival: Ambulatory History of Present Illness HPI Narrative: Patient complains of left knee pain injury. Also posterior knee/calf pain. No history of DVT or PE in the past. Patient slipped and injured her left knee 2 weeks ago in a parking lot. Since then has had pain and swelling. History of laparoscopic knee surgery 4 years ago in [place] for medial meniscus. Since then she states has not been the same. complaint: knee injury Related Data Home Medications Medication Instructions Recorded Confirmed Geritol Tonic with Ferrex 18 1 ml PO DAILY 06/28/19 10/10/20 diphenhydramine HCl 25 mg capsule 25 mg PO Q6H PRN 07/14/19 10/10/20 hydrocodone-acetaminophen 1 tab PO Q4-6H PRN 08/16/19 10/10/20 silver sulfadiazine [Silvadene] 1 applic TOPICAL BID 04/16/20 10/10/20 Black Pepper Tablet 1 tab DAILY 05/02/20 10/10/20 Tumeric 1 tab DAILY 05/02/20 10/10/20 Previous Rx's Medication Instructions Recorded ondansetron 4 mg PO Q8H PRN #20 tab 09/13/19 letrozole [Femara] 2.5 mg PO DAILY #90 tab 05/02/20 palbociclib 125 mg PO DAILY #21 tab 05/02/20 gabapentin [Neurontin] 300 mg PO TID #90 cap 06/20/20 Allergies Allergy/AdvReac Type Severity Reaction Status Date / Time aspirin Allergy Intermediate Verified 11/21/20 17:04 latex [LATEX] Allergy Intermediate RASH Verified 11/21/20 17:04 iodine Allergy Mild Rash Verified 11/21/20 17:04 diazepam AdvReac Intermediate Feel very Verified 11/21/20 17:04 sick acetaminophen [From Percocet] AdvReac Mild Hallucinations, Verified 11/21/20 17:04 Onry oxycodone [From Percocet] AdvReac Mild Hallucinations, Verified 11/21/20 17:04 Onry pseudoephedrine AdvReac Mild Nervousness, Verified 11/21/20 17:04 jittery Review of Systems Review of Systems Narrative: GENERAL: Denies chills, fatigue, malaise, fever, sweats. HEENT: Denies sinus pain, ear pain, sore throat, difficulty swallowing RESPIRATORY: Denies dyspnea, cough CARDIOVASCULAR: Denies chest pain, palpitations, edema, GASTROINTESTINAL: Denies nausea, vomiting, abdominal pain, diarrhea, constipation, melena. : Denies dysuria, frequency, hematuria MUSCULOSKELETAL: Complains muscle or bony pain SKIN: Denies rash, skin lesions NEUROLOGIC: Denies weakness, headache, numbness, change in speech, confusion PSYCHIATRIC: No SI or HI or hallucinations ROS Unobtainable: All systems reviewed & are unremarkable except as noted in HPI and below Patient History Medical History Constipation Diarrhea Former smoker GERD (gastroesophageal reflux disease) Surgical History Hx of bilateral mastectomy (01/05/20) Hx of left breast biopsy (06/14/19) Status post delivery Social History household members: family Smoking Status: Former smoker alcohol intake: never substance use type: does not use Smoking Status: Former smoker alcohol intake frequency: holidays/special occasions only Substance Use Type: does not use Exam Narrative Exam Narrative: GENERAL: patient appears stated age. Well-nourished, well- developed patient, in no distress, not toxic not dyspneic HEAD: Normocephalic. EXTREMITIES: No gross deformities. Examination left lower extremity. She was in socks removed. Pants are removed. Nontender hip and ankle and foot. Strong pedal pulse. There is tenderness diffusely of the anterior and posterior left knee. No erythema. Mild edema anteriorly. No calf tenderness or palpable cords. No pain with Homans test or press test. Pain of the left knee without laxity with anterior posterior mediolateral and rotational stress of the left leg. Patient able stand and bear weight and walks without a cyst but does have antalgic gait without footdrop. Foot warm soft and pink with light touch intact to foot and toes. BACK: Nontender without deformity or crepitance. No flank tenderness. NEURO: AOx4. SKIN: Warm and dry PSYCH: Not anxious, is cooperative Initial Vital Signs Initial Vital Signs: Vital Signs Temperature 98.2 F 11/21/20 17:04 Pulse Rate 92 H 11/21/20 17:04 Respiratory Rate 20 11/21/20 17:04 Blood Pressure 170/108 H 11/21/20 17:04 Pulse Oximetry 96 11/21/20 17:04 Course Course Course Narrative: No new complaints during course of stay Orders Ordered: ED Orders 11/21/20 19:58 XR knee LT 3V Stat Reevaluation(s) Reevaluation #1: Reviewed results with patient, agrees with treatment plan follow-up with orthopedics locally. Does not want crutches. Time: 21:28 Consultations Consultation #1: Spoke with Orthopedics, Dr. Cardona, patient to call office tomorrow for appointment with 1 of his partners. Patient tolerated Shravan wrap without any difficulty. No numbness tingling or weakness. Post wrapping. No cool sensation to the leg or foot Time: 21:28 Vital Signs Vital signs: Vital Signs - 8 hr 11/21/20 21:45 Pulse Rate 96 H Respiratory Rate 17 Blood Pressure 177/104 H Pulse Oximetry 95 MDM - Extremity Injury (Lower) Differential Diagnosis Differential diagnosis: Likely other (Knee strain/knee effusion/DVT) Imaging Data US - DVT: Radiologist's Impression: [address] [id number] ReportSigned Patient: Anita Huff [facility]#: [id number]: 1960cct:[id number]/Sex: 60 / FDate of Service: 11/21/20Loc: EDAccession Number: [id number] Procedure: US perip venous low extrem lt Ordering Provider: Haresh Kirkpatrick D.O. PROCEDURE: US PERIP VENOUS LOW EXTREM LT INDICATIONS: eval for DVT TECHNIQUE: Real-time imaging, as well as color and pulse Doppler interrogation, were performed of the lower extremity deep veins from the inguinal ligament to the popliteal fossa. COMPARISON: None. FINDINGS: The common femoral, femoral and popliteal veins are normally compressible, and free of intraluminal thrombus. Color and pulse Doppler demonstrate normal phasic intraluminal flow. There is normal augmentation response to distal compression maneuver. IMPRESSION: No sonographic evidence of deep venous thrombosis in the left lower extremity. Dictated by: Kyle Farrar M.D. on 11/21/2020 at 18:18 Approved by: Kyle Farrar M.D. on 11/21/2020 at 18:19 Extremity x-ray #1: Radiologist's Impression: [address] [id number] ReportSigned Patient: Anita Huff [facility]#: [id number]: 1Acct:[id number]/Sex: 60 / FDate of Service: 11/21/20Loc: EDAccession Number: [id number] Procedure: XR knee LT 3V Ordering Provider: Baljinder Thomas MD PROCEDURE: XR KNEE LT 3V INDICATIONS: Pain/injury TECHNIQUE: 3 views of the knee were acquired. COMPARISON: None. FINDINGS: Bones: No acute fractures or dislocations. No suspicious bony lesions. There is minimal marginal spurring at the patellofemoral joint space. Soft tissues: Probable small joint effusion. No suspicious soft tissue calcifications. IMPRESSION: No acute osseous abnormality. Probable small joint effusion. If clinical suspicion and/or symptoms persist, further assessment with repeat plain films, or advanced imaging (e.g., CT, MRI, or bone scan) may be helpful for further assessment. Dictated by: Kyle Farrar M.D. on 11/21/2020 at 21:08 Approved by: Kyle Farrar M.D. on 11/21/2020 at 21:09 [facility] Narrative Medical decision making narrative: Appropriate for discharge home. Onset 2 weeks ago. At this time no fracture seen on x-ray. No DVT. Patient agrees with treatment plan and follow-up Discharge Plan Departure Patient Disposition: Home Clinical Impression: Strain of left knee Qualifiers: Encounter type: initial encounter Qualified Code(s): S86.912A - Strain of unspecified muscle(s) and tendon(s) at lower leg level, left leg, initial encounter Instructions: DI for Knee Sprain, How to Apply an Shravan Wrap, DI for Knee Pain Activity Restrictions/Additional Instructions: May continue home medications for pain. Return if worse or any questions or concerns. Call provided orthopedic office in the morning for office recheck next week. Use Shravan wrap for comfort. Prescriptions: No Action diphenhydramine HCl [Benadryl] 25 mg capsule 25 mg PO Q6H PRN (Reason: Pain (Scale Score 4-6)) RF: 0 Geritol Tonic with Ferrex 18 2.5 mg-50 mg-18 iron/15 mL Liquid 1 ml PO DAILY RF: 0 hydrocodone-acetaminophen 5-325 mg Tablet 1 tab PO Q4-6H PRN (Reason: Pain (Scale Score 4-6)) RF: 0 ondansetron 4 mg Tablet,Disintegrating 4 mg PO Q8H PRN (Reason: Nausea) Qty: 20 RF: 2 Black Pepper Tablet 1 tab DAILY RF: 0 Tumeric 1 tab DAILY RF: 0 letrozole [Femara] 2.5 mg Tablet 2.5 mg PO DAILY Qty: 90 RF: 4 palbociclib 125 mg Tablet 125 mg PO DAILY Qty: 21 RF: 0 gabapentin [Neurontin] 300 mg Capsule 300 mg PO TID Qty: 90 RF: 11 silver sulfadiazine [Silvadene] 1 % Cream 1 applic TOPICAL BID RF: 0 Referrals: Malu Serna MD [Primary Care Provider] - Bruce Cardona MD [Physician] - Stand Alone Forms: Work Release Note
[2020-11-21 21:45] VITALS: BP 177/104; PULSE 96; RESP 17; O2SAT 95
== END 2020-11-21 21:45 | disposition home or self-care (01) ==
PROVIDERS: Emergency Provider Emergency Medicine; PCP Student in an Organized Health Care Education/Training Program
DX: S86.912A Strain of unspecified muscle(s) and tendon(s) at lower leg level, left leg, initial encounter (principal); W01.0XXA Fall on same level from slipping, tripping and stumbling without subsequent striking against object, initial encounter
CPT/HCPCS: 73562; 93971; 99283

== ENCOUNTER → 2021-01-30 07:51 | Outpatient (CLI) | payer OTHER, SELFPAY ==
--- NOTE | 2021-01-30 09:13 | DI.CT.S_ITS ---
PROCEDURE: CT CHEST ABD PEL W CON INDICATIONS: Metastatic breast cancer. TECHNIQUE: After the administration of oral and intravenous contrast, 5 mm thick sections acquired from the lung apices to the symphysis. 5 mm coronal and sagittal reformats were performed, with additional 7 mm coronal MIP reformats through the lungs. For radiation dose reduction, the following was used: automated exposure control, adjustment of mA and/or kV according to patient size. COMPARISON: [facility], [place], [place] BONE SCAN WHOLE BODY, 05/09/2020, 13:09. [facility], CT, CT CHEST ABD PEL W CON, 05/09/2020, 11:55. [facility], CT, CT CHEST ABD PEL W CON, 01/31/2020, 11:12. [facility], CT, CT CHEST ABD PEL W CON, 10/29/2020, 8:42. FINDINGS: Image quality: Excellent. CHEST: Lungs and pleura: Stable subpleural septal thickening in the left upper lobe and lingula anteriorly, likely secondary to post radiation change. No acute airspace opacities. No pleural effusions or pneumothorax. Central and peripheral airways appear patent and normal in caliber. Mediastinum: Heart size is normal. No pericardial effusion. No mediastinal or hilar adenopathy by size criteria. Thoracic aorta and central pulmonary arteries are normal in size. Esophagus is normal in caliber. Small hiatal hernia. Chest wall: There are postsurgical changes related to bilateral mastectomies. A 1.1 cm nodular density in the left axilla is unchanged. No axillary or supraclavicular adenopathy by size criteria. Thyroid gland is normal. There is a Port-A-Cath in the right anterior chest with the tip within the SVC. ABDOMEN: Solid organs: Severe hepatic steatosis. Liver is normal in size and enhancement. Gallbladder is normal. Biliary system is non dilated. Pancreas enhances normally. Spleen is normal in size and enhancement. Bilateral adrenal nodules measuring 1.0 cm on the left and 1.2 cm on the right. Compared with last exam on 10/29/2020, there is no significant change. Kidneys demonstrate normal size and enhancement, without hydronephrosis. Peritoneum and bowel: Subtle omental stranding is stable. Bowel loops demonstrate normal wall thickness and caliber. There is a moderate amount of stool in colon. No free fluid or air. Nodes and vessels: No retroperitoneal or mesenteric adenopathy by size criteria. Aorta and inferior vena cava are normal in size. Miscellaneous: No ventral hernias. PELVIS: Genitourinary: Uterus and ovaries are normal. No free fluid in pelvis. Bladder wall thickness is normal. Miscellaneous: No inguinal hernias or adenopathy. Bones: There is a 1.7 cm sclerotic lesion in the right side of L1 vertebral body, unchanged. No vertebral body compression fractures. IMPRESSION: 1. A 1.1 cm nodular density in the left axilla is unchanged. 2. Subtle omental stranding is unchanged. 3. Stable 1.7 cm sclerotic lesion in L1 vertebral body. 4. Stable post radiation change in the anterior left upper lobe and lingula. 5. Hepatic steatosis. Dictated by: Rupal Hill M.D. on 01/30/2021 at 11:45 Approved by: Rupal Hill M.D. on 01/30/2021 at 13:09
== END ==
PROVIDERS: PCP Student in an Organized Health Care Education/Training Program; Referring Provider Internal Medicine Hematology & Oncology; Visit Provider Internal Medicine Hematology & Oncology
DX: C50.919 Malignant neoplasm of unspecified site of unspecified female breast (principal)
CPT/HCPCS: 71260; 74177

== ENCOUNTER → 2021-07-28 10:02 | Outpatient (CLI) | payer OTHER, SELFPAY ==
--- NOTE | 2021-07-28 10:03 | DI.CT.S_ITS ---
PROCEDURE: CT CHEST ABD PEL W CON INDICATIONS: metastatic breast cancer TECHNIQUE: After the administration of intravenous contrast, 5 mm thick sections acquired from the lung apices to the symphysis. 2.5 mm thick coronal and sagittal reformats were acquired. Additional 7 mm thick coronal maximum intensity projection (MIP) reformats acquired through the lungs. Optional 10-minute delayed imaging may be performed from the kidneys to the bladder. For radiation dose reduction, the following was used: automated exposure control, adjustment of mA and/or kV according to patient size. COMPARISON: , CT, CT CHEST ABD PEL W CON, 01/30/2021, 8:52. FINDINGS: Image quality: Excellent. CHEST: Lungs and pleura: No acute airspace opacity. Stable septal thickening in the left upper lobe and lingula anteriorly. No pleural effusions or pneumothorax. Central and peripheral airways are patent and normal in caliber. A few punctate granulomas are seen bilaterally. Mediastinum: Heart size is normal. No pericardial effusion. No mediastinal adenopathy by size criteria. Thoracic aorta and central pulmonary arteries are normal in size. Esophagus is normal in caliber. No hiatal hernia. Chest wall: 1.1 cm nodular density in the left axilla, likely scar tissue is unchanged. Right chest wall port is well positioned. No axillary or supraclavicular adenopathy by size criteria. Thyroid gland is normal . ABDOMEN: Solid organs: Liver: The liver has no mass or intrahepatic biliary ductal dilatation. The portal vein and hepatic veins are patent. Hepatic density is low consistent with hepatic steatosis. Biliary: The gallbladder has no gallstones, pericholecystic fluid, gallbladder wall thickening, or surrounding inflammatory change. Pancreas: The pancreas has no mass or ductal dilatation. There is no surrounding inflammation. Spleen: Normal size. There are no masses. Adrenals: Bilateral adrenal nodules measuring 1.0 centimeters on the left and 1.2 centimeters on the right are unchanged. Kidneys: No obstructive calculus or hydronephrosis. No solid mass. No cystic mass. Bowel: The distal esophagus and stomach are normal. The small bowel has a normal caliber and appearance. The terminal ileum is normal. The large bowel has a normal caliber and appearance. The appendix is not definitively visualized; however there are no secondary findings to suggest acute appendicitis. No free fluid or air. Nodes and vessels: No retroperitoneal or mesenteric adenopathy by size criteria. Aorta and inferior vena cava are normal in size. Omental stranding described on the prior CT is no longer present. Abdominal wall: No abdominal wall mass or hernia. PELVIS: Genitourinary: The bladder has no wall thickening or mass. No bladder calcifications. Abdominal wall: No inguinal hernias or adenopathy. BONES: No suspicious bony lesions. No vertebral body compression fractures. Sclerosis in the L1 vertebral body on the right is adjacent to an area of disc disease and is likely related to degenerative changes, unchanged compared to prior CT. IMPRESSION: 1. No new evidence of recurrent disease or metastasis. 2. Nodular density in the left axilla measuring 1.1 cm is unchanged, likely scar tissue. 3. Hepatic steatosis. 4. Stable post radiation change in the anterior left upper lobe and lingula. Dictated by: Cristiano Reyes M.D. on 07/28/2021 at 11:47 Approved by: Cristiano Reyes M.D. on 07/28/2021 at 11:58
== END ==
PROVIDERS: PCP Student in an Organized Health Care Education/Training Program; Referring Provider Internal Medicine Hematology & Oncology; Visit Provider Internal Medicine Hematology & Oncology
DX: C78.6 Secondary malignant neoplasm of retroperitoneum and peritoneum; C50.112 Malignant neoplasm of central portion of left female breast; C77.3 Secondary and unspecified malignant neoplasm of axilla and upper limb lymph nodes; K76.0 Fatty (change of) liver, not elsewhere classified; Z17.0 Estrogen receptor positive status [ER+]
CPT/HCPCS: 71260; 74177; Q9967

== ENCOUNTER → 2021-11-13 09:03 | Outpatient (CLI) | payer OTHER, SELFPAY ==
--- NOTE | 2021-11-13 09:55 | DI.CT.S_ITS ---
PROCEDURE: CT CHEST ABD PEL W CON INDICATIONS: BREAST CACER, METASTATIC TECHNIQUE: After the administration of oral and intravenous contrast, axial sections acquired from the supraclavicular neck to the pubic symphysis. Coronal and sagittal reformats were performed. For radiation dose reduction, the following was used: automated exposure control, adjustment of mA and/or kV according to patient size. COMPARISON: [facility], CT, CT CHEST ABD PEL W CON, 07/28/2021, 11:19. [facility], CT, CT CHEST ABD PEL W CON, 01/30/2021, 8:52. [facility], CT, CT CHEST ABD PEL W CON, 10/29/2020, 8:42. [facility], CT, CT CHEST ABD PEL W CON, 05/09/2020, 11:55. FINDINGS: Image quality: Excellent. CHEST: Lower Neck: No enlarged lymph nodes. Thyroid: Within normal limits. Axillae: No enlarged lymph nodes. No change in left axillary scarring. Chest Wall: Right chest wall port catheter, tip of which is in the mid SVC. Lungs and Airways: No consolidation or suspicious nodules. Curvilinear calcification within the right upper lobe posteriorly. Calcified nodule within the left lung base laterally. Calcified nodules within the left upper lobe anterolaterally, as before. Mild scarring within the left upper lobe anteriorly. Pleura: No pneumothorax or pleural effusions. Heart: Heart size is normal. No pericardial effusion. Thoracic Vessels: The aorta and pulmonary arteries demonstrate normal size. Mediastinum and Myra: No enlarged lymph nodes. Esophagus: No wall thickening. No hiatal hernia. ABDOMEN: Liver: Liver demonstrates diffusely decreased density, without focal mass, as before. Gallbladder: Unremarkable. Biliary ducts: Unremarkable. Pancreas: Unremarkable. Spleen: Unremarkable. Adrenal Glands: No change in 10 mm diameter fat containing right adrenal nodule. Kidneys and Ureters: Unremarkable. Stomach and Bowel: Stomach and small bowel are unremarkable. There is moderate thickening of the ascending colon. Mild thickening of the descending and sigmoid colon. This is unchanged. Peritoneum: No abnormal intraperitoneal fluid. No free air. Ventral Wall: No hernia. Abdominal Nodes: No retroperitoneal or mesenteric adenopathy by size criteria. Vessels: Aorta and inferior vena cava are normal in size. PELVIS: Pelvic Organs: Unremarkable. Bladder: Decompressed. Pelvic Nodes: No enlarged lymph nodes. Miscellaneous: No inguinal hernias are seen. Bones: Unremarkable. IMPRESSION: 1. No evidence of malignancy. 2. Remote granulomatous disease. 3. 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 4. No significant change in colonic thickening as described above. Given the stability, findings are most suggestive of scarring, infection, or inflammation. This could be further assessed with endoscopy, if clinically indicated. 5. Hepatic steatosis. Dictated by: Torie Beach M.D. on 11/13/2021 at 10:23 Approved by: Torie Beach M.D. on 11/13/2021 at 10:28
== END ==
PROVIDERS: PCP Student in an Organized Health Care Education/Training Program; Referring Provider Internal Medicine Hematology & Oncology; Visit Provider Internal Medicine Hematology & Oncology
DX: C50.919 Malignant neoplasm of unspecified site of unspecified female breast (principal); D35.01 Benign neoplasm of right adrenal gland
CPT/HCPCS: 71260; 74177

== ENCOUNTER → 2022-02-24 13:39 | Outpatient (CLI) | payer OTHER, SELFPAY ==
--- NOTE | 2022-02-24 13:40 | DI.MRI.S_ITS ---
PROCEDURE: MR HEAD/BRAIN WO/W CON INDICATIONS: breast cancer, metastasis, worsening headache TECHNIQUE: Noncontrast axial T1 spin echo, axial T2 fast spin echo, sagittal and axial FLAIR, coronal T2 fast spin echo, axial gradient echo, axial diffusion and ADC through the brain. After the administration of contrast, axial and coronal 3D VIBE or T1 spin echo with fat saturation through the brain. COMPARISON: None. FINDINGS: Image quality: Excellent. CSF Spaces: Basal cisterns are patent. No extra-axial fluid collections. Ventricles are normal in size and shape. Brain: No midline shift. No intracranial bleeds or masses. Mild chronic microvascular ischemic changes. No abnormal intracranial enhancement. The brainstem appears normal. Diffusion-weighted images demonstrate no acute ischemic insults. No chronic ischemic insults. Normal intravascular flow voids are present. Skull and face: Calvarial marrow is normal in signal. Orbits appear normal. Sinuses: Sinuses and mastoids appear clear. IMPRESSION: No evidence of intracranial metastatic disease. Dictated by: Timur Palomares M.D. on 02/24/2022 at 15:57 Approved by: Timur Palomares M.D. on 02/24/2022 at 16:00
== END ==
PROVIDERS: PCP Student in an Organized Health Care Education/Training Program; Referring Provider Internal Medicine Hematology & Oncology; Visit Provider Internal Medicine Hematology & Oncology
DX: C50.919 Malignant neoplasm of unspecified site of unspecified female breast (principal); R51.9 Headache, unspecified
CPT/HCPCS: 70553; A9579

== ENCOUNTER → 2022-08-26 08:26 | Outpatient (CLI) | payer OTHER, SELFPAY ==
--- NOTE | 2022-08-26 08:28 | DI.CT.S_ITS ---
PROCEDURE: CT CHEST ABD PEL W CON INDICATIONS: metastatic breast cancer TECHNIQUE: After the administration of oral and intravenous contrast, axial sections acquired from the supraclavicular neck to the pubic symphysis. Coronal and sagittal reformats were performed. For radiation dose reduction, the following was used: automated exposure control, adjustment of mA and/or kV according to patient size. The patient was successfully pre-medicated for contrast allergy. No reported complications. COMPARISON: [facility], CT, CT CHEST ABD PEL W CON, 07/28/2021, 11:19. [facility], CT, CT CHEST ABD PEL W CON, 11/13/2021, 10:01. FINDINGS: Image quality: Excellent. CHEST: Lower Neck: No adenopathy. Thyroid: The visible portion is normal. Axillae: No adenopathy, suspicious masses, or fluid collections. Chest Wall: Right subclavian MediPort. Bilateral mastectomy changes. No change in mild right medial chest wall skin thickening. No evidence of new intramuscular or subcutaneous chest wall mass. Lungs and Airways: Central and peripheral airways are normal. No new lung nodules. Occasional, stable calcified granulomas. No consolidations or ground-glass opacities. Pleura: No pneumothorax or pleural effusions. Heart: Heart size is normal. No pericardial effusion. Thoracic Vessels: The aorta and pulmonary arteries demonstrate normal size. Mediastinum and Myra: No enlarged lymph nodes. Esophagus: No wall thickening. No hiatal hernia. ABDOMEN: Liver: Mild hepatomegaly and moderate hepatic steatosis. No suspicious liver masses. Gallbladder: Normal. Biliary ducts: Nondilated. Pancreas: Normal. Spleen: Normal size. Adrenal Glands: Stable subcentimeter right adrenal myelolipoma. No new adrenal masses. Kidneys and Ureters: Symmetric enhancement. No nephrolithiasis or hydronephrosis. No hydroureter. Stomach and Bowel: Stomach, small bowel loops, and colon are unremarkable. The appendix was not seen. Peritoneum: There is been interval development abnormal soft tissue density developing within the small bowel mesentery adjacent bowel loops with attenuation above that of fluid. There is no mass effect. Subtle fat stranding along the anterior omentum is not significantly changed, probably physiologic. There is no free fluid in the abdomen or pelvis. Ventral Wall: No hernia. Abdominal Nodes: No retroperitoneal or mesenteric adenopathy by size criteria. Vessels: Aorta and inferior vena cava are normal in size. PELVIS: Pelvic Organs: Uterus and ovaries appear normal. Bladder: Decompressed. Pelvic Nodes: Miscellaneous: No inguinal hernias are seen. Bones: Probable vertebral body hemangioma in the right lateral aspect of L1. No suspicious bone lesions. IMPRESSION: 1. Development mesenteric soft tissue suspicious for metastatic disease. No evidence of peritoneal nodularity or free fluid. Lymphoma may also have this appearance. 2. Surgical changes of mastectomy without evidence of local recurrence. 3. No other evidence of metastatic disease in the chest, abdomen, or pelvis. 4. Hepatomegaly and moderate hepatic steatosis, chronic. Dictated by: Namrata Garcia M.D. on 08/26/2022 at 12:42 Approved by: Namrata Garcia M.D. on 08/26/2022 at 13:07
== END ==
PROVIDERS: PCP Student in an Organized Health Care Education/Training Program; Referring Provider Internal Medicine Hematology & Oncology; Visit Provider Internal Medicine Hematology & Oncology
DX: C77.3 Secondary and unspecified malignant neoplasm of axilla and upper limb lymph nodes; C78.6 Secondary malignant neoplasm of retroperitoneum and peritoneum; K76.0 Fatty (change of) liver, not elsewhere classified; C50.112 Malignant neoplasm of central portion of left female breast; Z17.0 Estrogen receptor positive status [ER+]; Z90.13 Acquired absence of bilateral breasts and nipples
CPT/HCPCS: 71260; 74177